=== PATIENT | male | born 1995 ===

== ENCOUNTER 2022-10-03 15:04 | Outpatient (CLI) | payer OTHER, SELFPAY | END 2022-10-03 15:05 | disposition home or self-care (01) | LOC: LKVREF 15:05 | PROVIDERS: Visit Provider Emergency Medicine | DX: Z01.818 Encounter for other preprocedural examination (principal) | CPT/HCPCS: 80048 ==

== ENCOUNTER 2025-02-14 13:08 | Outpatient (CLI) | payer OTHER, SELFPAY | END 2025-02-14 13:09 | disposition home or self-care (01) | PROVIDERS: Visit Provider Family Medicine | DX: Z01.818 Encounter for other preprocedural examination (principal); Z13.6 Encounter for screening for cardiovascular disorders | CPT/HCPCS: 80048; 80061 ==